=== PATIENT | female | born 1955 | race Caucasian/White ===

== ENCOUNTER 2020-08-26 20:14 | Inpatient (IN) | payer MEDICAID ==
[~2020-08-26] VITALS: Ht 157.5 cm; Wt 79.6 kg
[2020-08-26] MEDS ORDERED: SODIUM CHLORIDE 0.9% 1,000 ML IV ONE (20:30)
[2020-08-27 00:13] LABS: Basophils # (auto) 0.1 10 ^3/uL (0-0.2); Basophils % (auto) 1.1 % (0.0-2.0); Eosinophils # (auto) 0.3 10 ^3/uL (0-0.8); Eosinophils % (auto) 3.9 % (0.0-7.0); Hematocrit 42.1 % (36.0-46.0); Hemoglobin 14.2 g/dL (12.2-16.2); Lymphocytes # (auto) 2.1 10 ^3/uL (0.4-5.4); Lymphocytes % (auto) 24.2 % (10.0-50.0); Mean Corpuscular Hemoglobin 30.8 pg (28.0-32.0); Mean Corpuscular Hgb Conc. 33.7 g/dL (32.0-36.0); Mean Corpuscular Volume 91.4 fL (80.0-100.0); Monocytes # (auto) 0.5 10 ^3/uL (0-1.3); Monocytes % (auto) 6.2 % (0.0-12.0); Neutrophils # (auto) 5.6 10 ^3/uL (1.6-8.6); Neutrophils % (auto) 64.6 % (37.0-80.0); Platelet Count (auto) 271 10^3/uL (140-450); Red Cell Distribution Width 13.8 % (11.8-14.3); White Blood Cell 8.7 10^3/uL (4.4-10.8)
[2020-08-27 00:37] LABS: Albumin 3.4 g/dL (3.4-5.0); Anion Gap 8 (5-15); BUN/Creatinine Ratio 18.5; Blood Alcohol < 3.0 mg/dL (0-5); Blood Urea Nitrogen 10 mg/dL (7-18); Calcium 8.8 mg/dL (8.5-10.1); Carbon Dioxide 25 mmol/L (21-32); Chloride 108 mmol/L (98-107); GFR African American 146 mL/min; GFR Non-African American 121 mL/min; Glucose 120 mg/dL (74-106); Magnesium 2.4 mg/dL (1.6-2.6); Potassium 3.9 mmol/L (3.5-5.1); Sodium 141 mmol/L (136-145)
[2020-08-27 00:41] LABS: INR 0.97 (0.9-1.15); Partial Thromboplastin Time 29.8 sec (23.0-31.2)
[2020-08-27 00:42] LABS: Alanine Aminotransferase 49 U/L (13-56); Alkaline Phosphatase 156 U/L (45-117); Aspartate Aminotransferase 44 U/L (15-37); Bilirubin, Total 0.2 mg/dL (0.2-1.0)
[2020-08-27] MEDS ORDERED: MORPHINE SULF INJ 2 MG/ML SYRINGE 1ML IV PRN (03:45)
[2020-08-27] MEDS ORDERED: NITROGLYCERIN 0.4 MG SL TAB SL PRN (03:45)
[2020-08-27 06:22] LABS: Basophils # (auto) 0 10 ^3/uL (0-0.2); Basophils % (auto) 0.3 % (0.0-2.0); Eosinophils # (auto) 0.4 10 ^3/uL (0-0.8); Eosinophils % (auto) 5.2 % (0.0-7.0); Hematocrit 39.1 % (36.0-46.0); Lymphocytes # (auto) 2.1 10 ^3/uL (0.4-5.4); Mean Corpuscular Hemoglobin 30.8 pg (28.0-32.0); Mean Corpuscular Hgb Conc. 33.3 g/dL (32.0-36.0); Mean Corpuscular Volume 92.5 fL (80.0-100.0); Monocytes # (auto) 0.6 10 ^3/uL (0-1.3); Monocytes % (auto) 7.9 % (0.0-12.0); Neutrophils # (auto) 4.3 10 ^3/uL (1.6-8.6); Neutrophils % (auto) 57.6 % (37.0-80.0); Platelet Count (auto) 228 10^3/uL (140-450); Red Blood Cells 4.22 10^6/uL (4.0-5.20); Red Cell Distribution Width 13.7 % (11.8-14.3); White Blood Cell 7.4 10^3/uL (4.4-10.8)
[2020-08-27 06:35] LABS: Albumin 3.2 g/dL (3.4-5.0); Calcium 8.6 mg/dL (8.5-10.1); Potassium 3.7 mmol/L (3.5-5.1)
[2020-08-27 06:42] LABS: Bilirubin, Total 0.4 mg/dL (0.2-1.0); Total Protein 7.2 g/dL (6.4-8.2)
[2020-08-27] MEDS ORDERED: LORazepam 2MG/ML-1ML VIAL IV ONE (08:15)
[2020-08-27] MEDS: ENOXAPARIN SOD 40 MG/0.4 ML SYRINGE SC SCH (09:04)
[2020-08-27 11:11] LABS: Amphetamine Screen, Urine NEGATIVE (NEGATIVE); Barbiturate Scree,Urine NEGATIVE (NEGATIVE); Benzodiazephine Screen, Urine NEGATIVE (NEGATIVE); Cannabinoid Screen, Urine NEGATIVE (NEGATIVE); Cocaine Screen, Urine NEGATIVE (NEGATIVE); Opiate Scree,Urine NEGATIVE (NEGATIVE); Phencyclidine Screen, Urine NEGATIVE (NEGATIVE)
[2020-08-27 11:51] LABS: Urine Bacteria FEW /hpf (None Seen); Urine Blood Negative /uL (Negative); Urine Mucus FEW (None Seen); Urine Specific Gravity 1.011 (1.001-1.035); Urine WBC <1 /hpf (0 - 5)
[2020-08-27] MEDS ORDERED: cloNIDine HCL 0.1 MG TAB PO PRN (14:15)
[2020-08-27] MEDS ORDERED: ONDANSETRON HCL 4 MG/2 ML VIAL IV PRN (14:15)
[2020-08-27] MEDS: SODIUM CHLORIDE 0.9% 1,000 ML IV SCH (14:27)
[2020-08-27 21:17] VITALS: BP 134/71
[2020-08-27 21:30] VITALS: BP 134/71
[2020-08-27] MEDS: CELECOXIB 100 MG CAP PO SCH (22:23)
[2020-08-27] MEDS: METOPROLOL TARTRATE 25 MG TAB PO SCH (22:23)
[2020-08-27] MEDS: FAMOTIDINE 20 MG TAB PO SCH (22:23)
[2020-08-27] MEDS: LISINOPRIL 5 MG TAB PO SCH (22:24)
[2020-08-28] VITALS (7 sets, daily range): BP systolic 128–145; BP diastolic 76–86
[2020-08-28] MEDS: SODIUM CHLORIDE 0.9% 1,000 ML IV SCH (00:12)
[2020-08-28] MEDS: FAMOTIDINE 20 MG TAB PO SCH (10:45)
[2020-08-28] MEDS: METOPROLOL TARTRATE 25 MG TAB PO SCH (10:45)
[2020-08-28] MEDS: CELECOXIB 100 MG CAP PO SCH (10:45)
[2020-08-28] MEDS: ENOXAPARIN SOD 40 MG/0.4 ML SYRINGE SC SCH (10:45)
[2020-08-28] MEDS: LISINOPRIL 5 MG TAB PO SCH (11:00)
[2020-08-28] MEDS ORDERED: LEFL20TA PO (12:06)
[2020-08-28] MEDS ORDERED: CYCL5TAB PO (12:06)
[2020-08-28] MEDS ORDERED: MONT10TA34 OR (12:06)
[2020-08-28] MEDS ORDERED: MET50T PO (12:06)
[2020-08-28] MEDS ORDERED: LISI-646 PO (12:11)
[2020-08-28] MEDS ORDERED: ALPR0.25 PO (12:12)
[2020-08-28] MEDS ORDERED: ALBUAER3 IN (12:12)
[2020-08-28] MEDS ORDERED: FAMO20TA10 PO (14:39)
[2020-08-28] MEDS ORDERED: CEL100T PO (14:39)
== END 2020-08-28 19:30 | disposition home or self-care (01) | DRG 351 ==
LOC: EDUNIT# 20:14 → EDBD 20:14 → ER 20:20 → TELE 20:21 → TELE-WESTW 08-27 21:10
PROVIDERS: ADMIT Hospitalist; ATTEND Hospitalist
DX: M79.7 Fibromyalgia (principal); Z20.822 Contact with and (suspected) exposure to COVID-19; M06.9 Rheumatoid arthritis, unspecified; I11.9 Hypertensive heart disease without heart failure; E66.9 Obesity, unspecified; E87.6 Hypokalemia; I08.0 Rheumatic disorders of both mitral and aortic valves; F41.9 Anxiety disorder, unspecified; Z68.32 Body mass index [BMI] 32.0-32.9, adult; Z88.0 Allergy status to penicillin; Z79.899 Other long term (current) drug therapy; Z82.49 Family history of ischemic heart disease and other diseases of the circulatory system
CPT/HCPCS: 36415; 70450; 70551; 71045; 80053; 80307; 80320; 81001; 82962; 83036; 83735; 84439; 84443; 84484; 85025; 85610; 85652; 85730; 86141; 87426; 93005; 93306; 96361; 96372; 96374; 97163; G0378